=== PATIENT | female | born 1970 | race Caucasian/White ===

== ENCOUNTER → 2024-08-02 08:47 | Outpatient (REF) | payer BC, OTHER, SELFPAY ==
[2024-08-02 10:26] LABS: FSH 7.6 mIU/ml; Luteinizing Hormone 4.74 mIU/ml
[2024-08-02 10:42] LABS: Estradiol 31.9 pg/ml
== END ==
LOC: REG 08:47
PROVIDERS: ATTENDING PHYSICIAN Obstetrics & Gynecology Gynecology; FAMILY PHYSICIAN Family Medicine
DX: N95.1 Menopausal and female climacteric states (principal)
CPT/HCPCS: 36415; 82670; 83001; 83002